=== PATIENT | male | born 1945 | race Caucasian/White ===

== ENCOUNTER 2018-06-02 12:23 | Inpatient (IN) | payer OTHER ==
[2018-05-30 10:32] LABS: BASOPHILS # (AUTO) 0.1 (0.0-0.1); BASOPHILS % 0.5 % (0.0-1.0); EOSINOPHILS # (AUTO) 0.2 (0.0-0.4); EOSINOPHILS % 1.8 % (0.0-6.0); HEMATOCRIT 44.5 % (38.2-49.6); LYMPHOCYTES # (AUTO) 2.1 (1.0-3.2); MEAN CORPUSCULAR HEMOGLOBIN 29.4 pg (28-32); MEAN CORPUSCULAR HGB CONC 33.7 g/dL (31-35); MEAN CORPUSCULAR VOLUME 87.3 fL (81-99); MONOCYTES % 8.8 % (4.4-11.3); NEUTROPHILS # (AUTO) 7.7 (2.1-6.9); NEUTROPHILS % 69.6 % (38.7-80.0); PLATELET COUNT 354 x10e3/uL (140-360); RED CELL DISTRIBUTION WIDTH 12.6 % (11.7-14.4)
[2018-05-30 10:42] LABS: INR 1.07; PROTHROMBIN TIME 13.1 seconds (11.9-14.5)
[2018-05-30 10:43] LABS: PARTIAL THROMBOPLASTIN TIME 27.8 seconds (23.8-35.5)
[2018-05-30 11:14] LABS: ALANINE AMINOTRANSFERASE 28 IU/L (0-55); ALBUMIN 3.6 g/dL (3.5-5.0); ALKALINE PHOSPHATASE 51 IU/L (40-150); ANION GAP 16.1 mmol/L (8-16); BLOOD UREA NITROGEN 14 mg/dL (7-26); BUN/CREATININE RATIO 16 (6-25); CALCIUM 9.9 mg/dL (8.4-10.2); CARBON DIOXIDE 27 mmol/L (22-29); CHLORIDE 98 mmol/L (98-107); EST GLOMERULAR FILTRATION RATE > 60 ML/MIN (60-); GLUCOSE 160 mg/dL (74-118); POTASSIUM 4.1 mmol/L (3.5-5.1); SODIUM 137 mmol/L (136-145)
--- NOTE | 2018-05-30 11:28 | Diagnostic Imaging Report ---
EXAMINATION: CHEST 2 VIEWS INDICATION: Pre Admit COMPARISON: None FINDINGS: TUBES and LINES: None. LUNGS: Low lung volumes. Mild left basilar subsegmental atelectasis. There is no evidence of pneumonia or pulmonary edema. PLEURA: No pleural effusion or pneumothorax. HEART AND MEDIASTINUM: The cardiomediastinal silhouette is unremarkable. BONES AND SOFT TISSUES: Age indeterminate anterior wedge compression deformity (loss of approximately 25 percent of height) of a lower thoracic vertebral body on lateral view. UPPER ABDOMEN: No free air under the diaphragm. IMPRESSION: No evidence of pneumonia or pulmonary edema. Age indeterminate loss of approximately 25 percent of vertebral body height in a lower thoracic vertebral body on the Signed by: Dr. Pedro Pablo Nina MD on 05/30/2018 11:24 AM
[2018-06-02] VITALS (15 sets, daily range): BP systolic 3–122; BP diastolic 47–113
[~2018-06-02] VITALS: Ht 177.8 cm; Wt 105.8 kg
[~2018-06-02 12:23] MED LIST: AMLODIPINE BESY10 MG PO; BASAGLAR SC; FLOMAX0.4 MG PO; GABAPENTIN100 MG PO; LEVOTHYROXINE50 MCG PO; LISINOPRIL-HCT1 EAC1 PO; METFORMIN HCL500 M2 PO; PRAVASTATIN SOD20 MG PO; TIZANIDINE HCL4 MG PO
[2018-06-02] MEDS ORDERED: CEFAZOLIN SOD 1 GM VIAL ONE (12:45)
[2018-06-02] MEDS ORDERED: MANNITOL 25% 12.5GM/50ML 50 ML ONE (12:59)
[2018-06-02] MEDS ORDERED: GELATIN SPONGE SZ 100 ONE (13:00)
[2018-06-02] MEDS ORDERED: IOPAMIDOL 300MG/ML 50ML INFUS..BTL IV ONE (14:51)
[2018-06-02] MEDS ORDERED: ACETAMINOPHEN 1000 MG/100 ML IV ONE (15:59)
[2018-06-02] MEDS ORDERED: DEXAMETHASONE SOD PHOS INJ 4 MG/ML VIAL ONE (15:59)
[2018-06-02] MEDS ORDERED: SEVOFLURANE INHAL SOLN 250 ML PEN BTL ONE (15:59)
[2018-06-02] MEDS ORDERED: ROCURONIUM BROMIDE 10 MG/ML 5ML VIAL ONE (15:59)
[2018-06-02] MEDS ORDERED: PROPOFOL IV EMULSION 10 MG/ML 20 ML VIAL ONE (15:59)
[2018-06-02] MEDS ORDERED: ONDANSETRON HCL INJ 2 MG/ML VIAL ONE (15:59)
[2018-06-02] MEDS: SOD CHL 0.45%/POT CHL 20MEQ 1,000 ML IV SCH ×2 (18:06→21:36)
[2018-06-02] MEDS ORDERED: ACETAMINOPHEN 1000 MG/100 ML IV PRN (18:15)
[2018-06-02] MEDS ORDERED: ONDANSETRON HCL INJ 2 MG/ML VIAL IV PRN (18:15)
[2018-06-02] MEDS ORDERED: DIPHENHYDRAMINE HCL INJ 50 MG/ML VIAL IM PRN (18:15)
[2018-06-02] MEDS ORDERED: NALOXONE HCL INJ 0.4 MG/ML AMP IV PRN (18:15)
[2018-06-02] MEDS ORDERED: FENTANYL CITRATE/PF 100MCG/2 ML INJ ONE ×2 (18:25→19:55)
[2018-06-02] MEDS ORDERED: MORPHINE SULFATE 2 MG/ML SYR ONE ×2 (18:35→19:17)
[2018-06-02] MEDS ORDERED: HYDROMORPHONE 2MG/ML 2 MG/ML ML ONE (18:39)
[2018-06-02] MEDS ORDERED: MORPHINE SULFATE 1 MG/ML 30ML PCA ONE (19:23)
[2018-06-02] MEDS ORDERED: MIDAZOLAM HCL 2 MG/2 ML VIAL ONE (19:55)
--- NOTE | 2018-06-02 19:56 | Diagnostic Imaging Report ---
EXAMINATION: CHEST SINGLE (PORTABLE) INDICATION: \S\R/O PTX \[id number] \S\1507 COMPARISON: Chest radiograph 05/30/2018 FINDINGS: AP view TUBES and LINES: None. LUNGS: Low lung volumes. Bibasilar atelectasis. There is no evidence of pneumonia or pulmonary edema. PLEURA: No pleural effusion or pneumothorax. HEART AND MEDIASTINUM: The cardiomediastinal silhouette is unremarkable. BONES AND SOFT TISSUES: No acute osseous lesion. Soft tissues are unremarkable. UPPER ABDOMEN: No free air under the diaphragm. IMPRESSION: No pneumothorax. Decreased lung volumes when compared to prior exam with worsening bibasilar atelectasis. Signed by: Dr. Whitney An M.D. on 06/02/2018 7:52 PM
[2018-06-02] MEDS: MORPHINE SULFATE 1 MG/ML 30ML PCA IV PRN ×2 (20:09→21:08)
[2018-06-02] MEDS ORDERED: CEFAZOLIN SOD 1 GM/D5W 50ML 50 ML IV SCH (22:00)
[2018-06-02] MEDS: CEFAZOLIN SOD 1 GM VIAL IV SCH (22:58)
[2018-06-03] VITALS (84 sets, daily range): BP systolic 62–128; BP diastolic 42–93
[2018-06-03] MEDS: MORPHINE SULFATE 1 MG/ML 30ML PCA IV PRN ×3 (00:04→21:39)
[2018-06-03] MEDS: SOD CHL 0.45%/POT CHL 20MEQ 1,000 ML IV SCH (02:06)
[2018-06-03 04:42] LABS: BASOPHILS % 0.2 % (0.0-1.0); HEMATOCRIT 37.5 % (38.2-49.6); HEMOGLOBIN 12.4 g/dL (14.0-18.0); LYMPHOCYTES # (AUTO) 1.5 (1.0-3.2); LYMPHOCYTES % 12.2 % (18.0-39.1); MEAN CORPUSCULAR HEMOGLOBIN 29.6 pg (28-32); MEAN CORPUSCULAR HGB CONC 33.1 g/dL (31-35); MEAN CORPUSCULAR VOLUME 89.5 fL (81-99); MONOCYTES # (AUTO) 1.5 (0.2-0.8); NEUTROPHILS # (AUTO) 9.4 (2.1-6.9); NEUTROPHILS % 75.4 % (38.7-80.0); PLATELET COUNT 322 x10e3/uL (140-360); RED BLOOD COUNT 4.19 x10e6/uL (4.3-5.7)
[2018-06-03 05:24] LABS: ANION GAP 14.7 mmol/L (8-16); BLOOD UREA NITROGEN 13 mg/dL (7-26); BUN/CREATININE RATIO 13 (6-25); CALCIUM 8.8 mg/dL (8.4-10.2); CARBON DIOXIDE 27 mmol/L (22-29); CHLORIDE 102 mmol/L (98-107); CREATININE, SERUM 1.03 mg/dL (0.72-1.25); EST GLOMERULAR FILTRATION RATE > 60 ML/MIN (60-); GLUCOSE 173 mg/dL (74-118); POTASSIUM 4.7 mmol/L (3.5-5.1); SODIUM 139 mmol/L (136-145)
[2018-06-03] MEDS: CEFAZOLIN SOD 1 GM VIAL IV SCH ×3 (06:03→22:22)
[2018-06-03] MEDS: DOCUSATE SODIUM 100 MG CAP PO SCH ×2 (09:09→17:19)
[2018-06-03] MEDS ORDERED: SODIUM CHLORIDE 0.45% 1,000 ML ONE ×2 (09:19→18:19)
[2018-06-03] MEDS ORDERED: DEXTROSE 50% SYRINGE 50 ML IV PRN (09:30)
[2018-06-03] MEDS: INSULIN LISPRO 100 UNIT/1 ML 3ML VIAL SQ SCH ×3 (11:30→20:46)
[2018-06-03] MEDS: SODIUM CHLORIDE 0.45% 1,000 ML IV SCH (19:16)
[2018-06-04] VITALS (26 sets, daily range): BP systolic 97–174; BP diastolic 32–109
[2018-06-04] MEDS: SODIUM CHLORIDE 0.45% 1,000 ML IV SCH (02:23)
[2018-06-04 04:39] LABS: BASOPHILS % 0.2 % (0.0-1.0); EOSINOPHILS # (AUTO) 0.1 (0.0-0.4); EOSINOPHILS % 0.6 % (0.0-6.0); HEMATOCRIT 38.6 % (38.2-49.6); HEMOGLOBIN 12.5 g/dL (14.0-18.0); LYMPHOCYTES # (AUTO) 1.9 (1.0-3.2); LYMPHOCYTES % 15.4 % (18.0-39.1); MEAN CORPUSCULAR HEMOGLOBIN 29.3 pg (28-32); MEAN CORPUSCULAR HGB CONC 32.4 g/dL (31-35); MEAN CORPUSCULAR VOLUME 90.4 fL (81-99); MONOCYTES # (AUTO) 1.6 (0.2-0.8); NEUTROPHILS # (AUTO) 8.9 (2.1-6.9); NEUTROPHILS % 70.5 % (38.7-80.0); PLATELET COUNT 297 x10e3/uL (140-360); RED BLOOD COUNT 4.27 x10e6/uL (4.3-5.7)
[2018-06-04 05:01] LABS: ANION GAP 17.2 mmol/L (8-16); CALCIUM 8.7 mg/dL (8.4-10.2); CREATININE, SERUM 1.2 mg/dL (0.72-1.25); POTASSIUM 4.2 mmol/L (3.5-5.1)
[2018-06-04] MEDS: CEFAZOLIN SOD 1 GM VIAL IV SCH ×3 (06:18→22:00)
[2018-06-04 07:08] LABS: EOSINOPHILS % (MANUAL) 2 % (0-7); LYMPHOCYTES % (MANUAL) 15 % (19-48); MONOCYTES % (MANUAL) 20 % (3.4-9.0); NEUTROPHILS % (MANUAL) 60 % (40-74)
[2018-06-04 07:13] LABS: ANISOCYTOSIS SLIGHT; HYPOCHROMASIA SLIGHT; PLATELET ESTIMATE ADEQUATE; PLATELET MORPHOLOGY COMMENT NORMAL; RBC MORPHOLOGY COMMENT NORMAL
[2018-06-04] MEDS: INSULIN LISPRO 100 UNIT/1 ML 3ML VIAL SQ SCH ×4 (08:04→21:00)
[2018-06-04] MEDS ORDERED: ACETAMINOPHEN/CODEINE 300MG - 30MG TAB PO PRN (09:00)
[2018-06-04] MEDS: DOCUSATE SODIUM 100 MG CAP PO SCH ×2 (09:05→16:50)
[2018-06-04] MEDS: LORATADINE 10 MG TAB PO SCH (09:55)
[2018-06-04] MEDS: HYDROCODONE/APAP 7.5MG-325MG 1 EA TAB PO PRN ×2 (09:55→22:45)
[2018-06-05] VITALS (7 sets, daily range): BP systolic 124–144; BP diastolic 59–71
[2018-06-05 05:42] LABS: BASOPHILS % 0.3 % (0.0-1.0); EOSINOPHILS # (AUTO) 0.2 (0.0-0.4); EOSINOPHILS % 1.6 % (0.0-6.0); HEMATOCRIT 36.5 % (38.2-49.6); LYMPHOCYTES # (AUTO) 1.8 (1.0-3.2); MEAN CORPUSCULAR HEMOGLOBIN 29.8 pg (28-32); MEAN CORPUSCULAR HGB CONC 32.9 g/dL (31-35); MEAN CORPUSCULAR VOLUME 90.6 fL (81-99); MONOCYTES # (AUTO) 1.5 (0.2-0.8); MONOCYTES % 12.6 % (4.4-11.3); NEUTROPHILS # (AUTO) 8.2 (2.1-6.9); NEUTROPHILS % 70.2 % (38.7-80.0); PLATELET COUNT 282 x10e3/uL (140-360); RED BLOOD COUNT 4.03 x10e6/uL (4.3-5.7); RED CELL DISTRIBUTION WIDTH 12.7 % (11.7-14.4)
[2018-06-05 06:01] LABS: ANION GAP 12.7 mmol/L (8-16); BLOOD UREA NITROGEN 12 mg/dL (7-26); BUN/CREATININE RATIO 14 (6-25); CALCIUM 9.1 mg/dL (8.4-10.2); CARBON DIOXIDE 30 mmol/L (22-29); CHLORIDE 101 mmol/L (98-107); CREATININE, SERUM 0.85 mg/dL (0.72-1.25); EST GLOMERULAR FILTRATION RATE > 60 ML/MIN (60-); GLUCOSE 127 mg/dL (74-118); POTASSIUM 4.7 mmol/L (3.5-5.1); SODIUM 139 mmol/L (136-145)
[2018-06-05] MEDS: CEFAZOLIN SOD 1 GM VIAL IV SCH ×3 (06:15→22:45)
[2018-06-05] MEDS ORDERED: BISACODYL 10 MG SUPP PR ONE (07:30)
[2018-06-05] MEDS: INSULIN LISPRO 100 UNIT/1 ML 3ML VIAL SQ SCH ×4 (07:30→21:10)
[2018-06-05] MEDS: LORATADINE 10 MG TAB PO SCH (08:11)
[2018-06-05] MEDS: DOCUSATE SODIUM 100 MG CAP PO SCH ×2 (08:11→16:36)
[2018-06-05] MEDS: HYDROCODONE/APAP 7.5MG-325MG 1 EA TAB PO PRN ×3 (08:30→21:09)
[2018-06-06] VITALS: BP 114/54
[2018-06-06 04:39] VITALS: BP 174/77
[2018-06-06 05:40] LABS: BASOPHILS % 0.4 % (0.0-1.0); EOSINOPHILS # (AUTO) 0.2 (0.0-0.4); HEMATOCRIT 35.3 % (38.2-49.6); HEMOGLOBIN 11.7 g/dL (14.0-18.0); LYMPHOCYTES # (AUTO) 1.4 (1.0-3.2); LYMPHOCYTES % 13.2 % (18.0-39.1); MEAN CORPUSCULAR HEMOGLOBIN 29.4 pg (28-32); MEAN CORPUSCULAR HGB CONC 33.1 g/dL (31-35); MEAN CORPUSCULAR VOLUME 88.7 fL (81-99); MONOCYTES # (AUTO) 1.2 (0.2-0.8); MONOCYTES % 11.5 % (4.4-11.3); NEUTROPHILS # (AUTO) 7.7 (2.1-6.9); NEUTROPHILS % 72.4 % (38.7-80.0); PLATELET COUNT 321 x10e3/uL (140-360); RED BLOOD COUNT 3.98 x10e6/uL (4.3-5.7); RED CELL DISTRIBUTION WIDTH 12.7 % (11.7-14.4)
[2018-06-06] MEDS: CEFAZOLIN SOD 1 GM VIAL IV SCH ×2 (05:46→13:20)
[2018-06-06] MEDS: HYDROCODONE/APAP 7.5MG-325MG 1 EA TAB PO PRN ×2 (05:53→13:32)
[2018-06-06 06:10] LABS: ANION GAP 13.9 mmol/L (8-16); BLOOD UREA NITROGEN 11 mg/dL (7-26); BUN/CREATININE RATIO 14 (6-25); CARBON DIOXIDE 28 mmol/L (22-29); CHLORIDE 99 mmol/L (98-107); CREATININE, SERUM 0.79 mg/dL (0.72-1.25); EST GLOMERULAR FILTRATION RATE > 60 ML/MIN (60-); GLUCOSE 141 mg/dL (74-118); POTASSIUM 3.9 mmol/L (3.5-5.1); SODIUM 137 mmol/L (136-145)
[2018-06-06] MEDS: INSULIN LISPRO 100 UNIT/1 ML 3ML VIAL SQ SCH ×3 (07:30→16:30)
[2018-06-06 08:10] VITALS: BP 155/82
[2018-06-06] MEDS ORDERED: BISACODYL 10 MG SUPP PR ONE (08:30)
[2018-06-06] MEDS ORDERED: BISACODYL 10 MG SUPP PR PRN (08:30)
[2018-06-06] MEDS ORDERED: MAGNESIUM HYDROXIDE 30 ML UDC PO ONE (09:15)
[2018-06-06] MEDS ORDERED: MINERAL OIL 132 ML BTL PR ONE (09:15)
[2018-06-06] MEDS: DOCUSATE SODIUM 100 MG CAP PO SCH ×2 (09:18→17:02)
[2018-06-06] MEDS: LORATADINE 10 MG TAB PO SCH (09:18)
[2018-06-06 12:00] VITALS: BP 139/80
[2018-06-06 12:36] VITALS: BP 155/82
[2018-06-06] MEDS ORDERED: TYLENOL WITH C1 EACH PO (15:33)
[2018-06-06] MEDS ORDERED: COLACE100 MG PO (15:34)
--- NOTE | 2018-06-24 09:55 | History and Physical ---
PRIMARY CARE PHYSICIAN: Dr. Cherry Marroquin BRAKES INSPECTOR: Dr. Malik John The patient is admitted to ICU after left partial renal resection. HISTORY: This 72-year-old male is now status post surgical intervention, left partial renal nephrectomy. The patient is stable postop. He is comfortable. He is getting IV fluids. The patient has not had any flatus as yet, but he is comfortable overall. PAST MEDICAL HISTORY 1. Left renal mass. 2. Recurrent urinary tract infection. 3. Hematuria. 4. Chronic lower back pain. 5. Diabetes. 6. Hypertension. 7. Hypothyroidism. 8. History of colon cancer, status post excision of cancerous polyps. SOCIAL HISTORY: Patient does not smoke or use alcohol. No recreational drugs. ALLERGIES: MEPERIDINE. HOME MEDICATIONS: List will be available for review. REVIEW OF SYSTEMS: Patient is stable postop. PHYSICAL EXAMINATION GENERAL: The patient is not in acute distress. VITAL SIGNS: Temperature is 98. Blood pressure 116/46. Pulse rate 75. Respirations 18. HEENT: Normocephalic, atraumatic. Pupils are reactive. Anicteric. NECK: Supple grossly. PULMONARY: Clear. CARDIOVASCULAR: Regular rhythm. ABDOMEN: Status post left partial nephrectomy. A DAWIT drain is in place. NEUROLOGIC: No focal deficit. LABORATORY: Sodium 139, potassium 4.7, chloride 102, bicarb 27, BUN 13, creatinine 1.0, glucose 173. WBC is 12. Hemoglobin 12. Hematocrit 37. Platelets 322. IMPRESSION 1. Status post postoperative day #1 left partial nephrectomy. 2. Baseline chronic medical problems, diabetes and hypertension. PLAN: Continue with postoperative care. Pain control. Check blood sugar. Cover with insulin. Job#: [id number]
--- NOTE | 2018-06-28 04:48 | Discharge Summary ---
FINAL DIAGNOSES 1. Left renal mass, status post left partial nephrectomy with left renal cystectomy done by Dr. Malik John. 2. Postoperative pain. 3. Slight anemia, but stable. SUMMARY: Patient is a 72-year-old male patient of Dr. Cherry Marroquin. Patient came in for postoperatively care. He has a left renal mass, underwent left partial nephrectomy and left renal cystectomy. Patient was stable postoperatively. He was comfortable with WELDING ESTIMATOR pump. Subsequently, medication adjustment was made. Patient was transferred out of the ICU to the medical floor and continuing with physical therapy. He is slightly anemic, but not enough to manage. His hemoglobin and hematocrit was 11.7 and 35.3 on day of discharge. BUN and creatinine are 11 and 0.79 respectively. The renal function is stable. Patient was comfortable, and he is able to tolerate all his diet. The patient was stable, discharged home after clearing with Dr. Malik John, and the patient to follow up with Dr. Malik John for postoperative care. Job#: [id number] [place]
--- OUTSIDE RECORDS SUMMARY | 2018-07-10 04:31 | XMS REPORT | Summary of Care ---
Author Author [facility] Organization [facility] Address Unknown Phone Unavailable Encounter MICHELLE Ahmadi(DIANE) [id number] Date(s): 08/31/16 - 08/31/16 [facility] [address] [place] [address]- Discharge Disposition: Home or Self Care Attending Physician: Raza Cyr MD Referring Physician: Raza Cyr MD Vital Signs No data available for this section Problem List No data available for this section Allergies, Adverse Reactions, Alerts No data available for this section Medications No data available for this section Results CHEM PANEL Most recent to 1 oldest [Reference Range]: eGFR 85 mL/min/1.73m2 1 *NA* (08/31/16 9:07 AM) POC Creatinine 0.9 mg/dL [0.5-1.4 mg/dL] (08/31/16 9:07 AM) 1Result Comment: The eGFR is calculated using the CKD-EPI formula. In most young , healthy individuals the eGFR will be >90 mL/min/1.73m2. The eGFR declines with age. An eGFR of 60-89 may be normal in some populations, particularly the elderly, for whom the CKD-EPI formula has not been extensively validated. Use of the eGFR is not recommended in the following populations: Individuals with unstable creatinine concentrations, including patients and those with serious co-morbid conditions. Patients with extremes in muscle mass or diet. The data above are obtained from the National Kidney Disease Education Program ( NKDEP) which additionally recommends that when the eGFR is used in patients with extremes of body mass index for purposes of drug dosing, the eGFR should be multiplied by the estimated BMI. Immunizations No data available for this section Procedures No data available for this section Social History No data available for this section Assessment and Plan No data available for this section
--- OUTSIDE RECORDS SUMMARY | 2018-07-10 04:31 | XMS REPORT ---
[email or web address] Address Unknown Phone Unavailable Care Team Providers Care Quality Compliance Manager Name Role Phone АЛЕКСАНДР PENA Unavailable Unavailable Problems This patient has no known problems. Allergies, Adverse Reactions, Alerts This patient has no known allergies or adverse reactions. Medications This patient has no known medications. Results Test Description Test Time Test Comments Text Results Atomic Results Result Comments CHEST SINGLE (PORTABLE) 2018-06-02 19:51:00 [place] [address] Patient Name: ARLEEN GIL MR #: [id number] : 1945 Age/Sex: 72/ M Req #: [id number] Adm Physician: Ordered by: АЛЕКСАНДР PENA MD Report #: [id number] Location: OR Room/Bed: Procedure: [id number] DX/CHEST SINGLE (PORTABLE) Exam Date: 06/02/18 Exam Time: 1507 REPORT STATUS: Signed EXAMINATION : CHEST SINGLE (PORTABLE) INDICATION: COMPARISON : Chest radiograph 05/30/2018 FINDINGS: AP view TUBES and LINES: None. LUNGS: Low lung volumes. Bibasilar atelectasis. There is no evidence of pneumonia or pulmonary edema. PLEURA: No pleural effusion or pneumothorax. HEART AND MEDIASTINUM: The cardiomediastinal silhouette is unremarkable. BONES AND SOFT TISSUES: No acute osseous lesion. Soft tissues are unremarkable. UPPER ABDOMEN: No free air under the diaphragm. IMPRESSION: No pneumothorax. Decreased lung volumes when compared to prior exam with worsening bibasilar atelectasis. Signed by: Dr. Kirk Pearson M.D. on 06/02/2018 7:52 PM Dictated By: KIRK PEARSON MD 51 Transcribed By: FROILAN on 06/02/181951 COPY TO: АЛЕКСАНДР PENA MD CHEST 2 VIEWS 2018-05-30 11:20:00 [place] [address] Patient Name: ARLEEN GIL MR #: [id number] : 1945 Age/Sex: 72/M Req #: [id number] Adm Physician: Ordered by: АЛЕКСАНДР PENA MD Report #: [id number] Location: OR Room/Bed: Procedure: [id number] DX/CHEST 2 VIEWS Exam Date: 05/30/18 Exam Time: 1115 REPORT STATUS: Signed EXAMINATION: CHEST 2 VIEWS INDICATION: Pre Admit COMPARISON: None FINDINGS: TUBES and LINES: None. LUNGS: Low lung volumes. Mild left basilar subsegmental atelectasis. There is no evidence of pneumonia or pulmonary edema. PLEURA: No pleural effusion or pneumothorax. HEART AND MEDIASTINUM: The cardiomediastinal silhouette is unremarkable. BONES AND SOFT TISSUES: Age indeterminate anterior wedge compression deformity (loss of approximately 25 percent of height) of a lower thoracic vertebral body on lateral view. UPPER ABDOMEN: No free air under the diaphragm. IMPRESSION: No evidence of pneumonia or pulmonary edema. Age indeterminate loss of approximately 25 percent of vertebral body height in a lower thoracic vertebral body on the Signed by: Dr. Mari Lara MD on 05/30 11:24 AM Dictated By: MARI LARA MD 112 Transcribed By: FROILAN on 05/30/181123 COPY TO: АЛЕКСАНДР PENA MD
--- NOTE | 2018-08-17 23:33 | Operative Report ---
DATE OF PROCEDURE: June 02, 2018 PREOPERATIVE DIAGNOSES 1. Left renal mass, consistent with kidney cancer. 2. Left renal cyst. 3. Microhematuria. 4. History of urolithiasis. POSTOPERATIVE DIAGNOSES 1. Left renal mass, consistent with kidney cancer. 2. Left renal cyst. 3. Microhematuria. 4. History of urolithiasis. OPERATIONS PERFORMED 1. Cystourethroscopy with bilateral ureteral catheterization and retrograde ureteropyelography (separate procedure for the microhematuria and the urolithiasis history). 2. Interpretation of retrograde ureteropyelography. 3. Supervision of fluoroscopy. No radiologist present. 4. Left complicated partial nephrectomy (separate procedure performed and made more complicated by the patient's obesity and other anatomical concerns). 5. Left renal cyst unroofing. CIRCULATION TENDER: Dr. Sarai John COMPLICATIONS: None. CLINICAL SUMMARY: Frantz Logan is a 72-year-old man with the above preoperative diagnoses. He was brought for the above procedures. He is aware of the risks of bleeding, infection, injury to adjacent structures, need for additional procedures, and elected to proceed. OPERATIVE PROCEDURE IN DETAIL: Informed was verified. Frantz Logan was properly identified, taken to operating room, placed on the cystoscopy table in supine position. Anesthesia was uneventfully begun. The patient was then carefully and gently repositioned in dorsal lithotomy position with all pressure points well padded. His genitalia were prepared and draped in usual sterile fashion. The 22.5-Maldivian cystoscope sheath with visual obturator in place was atraumatically inserted to patient's urethra. It was guided down the unremarkable urethra past a normal sphincteric region through the prostate bed was significant for some visually obstructing, BPH with elevated median bar. We entered the patient's bladder, which exhibited grade-2 trabeculations, but no tumors, no stones, and no diverticula. Normally positioned configured ureteral orifices were identified. Ureteral catheter was used cannulate each ureter and retrograde ureteropyelography was performed. Interpretation retrograde ureteropyelography: Contrast was instilled in retrograde fashion bilaterally. There were no tumors, no stones, no diverticula. Unobstructed drainage was observed bilaterally fluoroscopically. The patient was then transferred carefully and gently to the open operating room, where he was re-positioned on the operating table in the flank position with all pressure points carefully well padded. His back chest and abdomen were prepared and draped in usual sterile fashion. A flank incision was then made carried through all layers of the abdominal and chest wall. We isolated the retroperitoneum. We carefully isolated the kidney. This was made complicated by the patient's anatomical concerns. We eventually isolated the kidney. We obtained control of the renal artery. Once the Gerota's fascia was removed sufficiently, we identified a cyst. We proceeded with unroofing the cyst. The cyst wall sent for histopathological analysis and we fulgurated the remaining cyst wall that was intrarenal. We then identified the renal mass that was suspicious. We clamped the artery with a Abhilash tourniquet and we proceeded quickly to perform a partial nephrectomy. Once we excised with what we believed to be was adequate margins. We quickly oversewed the various blood vessels as well as collecting system. We are planning excision. The pathologist returned a report of negative margins. We then finished our repair with Surgicel, as well as FloSeal with the capsular sutures approximating. Excellent hemostasis was achieved. Clamp time of the artery was approximately 12 minutes. A Earl drain was then placed through a separate stab incision, secured to the skin with nylon suture. After copiously irrigating, the patient's incision was approximated with a heavy Vicryl suture in 2 layers and the skin was approximated with skin mk. Heavy Vicryl suture was utilized in an interrupted figure-of-8 fashion. Sterile dressings were applied and the patient was uneventfully reversed from anesthesia and taken to recovery room in stable condition. There were no complications to procedure. The patient tolerated the procedure well. Sponge, needle, and instrument counts were correct x2 at the end of the case. For estimated blood loss, please refer to the anesthesia record. Plans will be to proceed with routine postoperative care and of course lifelong followup. Job#: [id number] CQ
== END 2018-06-06 17:01 | disposition home health service (06) | DRG 657 ==
LOC: OR 12:23 → ICU 20:03 → MED/SURG 06-04 11:23
PROVIDERS: ADMIT Internal Medicine; ATTEND Internal Medicine
PROC: 0TB10ZZ Excision of Left Kidney, Open Approach (ICD-10-PCS; principal; 2018-06-02 15:02)
PROC: BT1F1ZZ Fluoroscopy of Left Kidney, Ureter and Bladder using Low Osmolar Contrast (ICD-10-PCS; 2018-06-02 15:02)
DX: C64.2 Malignant neoplasm of left kidney, except renal pelvis (principal); K56.7 Ileus, unspecified; N28.89 Other specified disorders of kidney and ureter; N40.1 Benign prostatic hyperplasia with lower urinary tract symptoms; N39.41 Urge incontinence; R39.14 Feeling of incomplete bladder emptying; R35.1 Nocturia; R31.29 Other microscopic hematuria; E66.9 Obesity, unspecified; K42.9 Umbilical hernia without obstruction or gangrene; I10 Essential (primary) hypertension; E11.9 Type 2 diabetes mellitus without complications; Z87.442 Personal history of urinary calculi; Z68.33 Body mass index [BMI] 33.0-33.9, adult; Z79.84 Long term (current) use of oral hypoglycemic drugs
CPT/HCPCS: 36415; 71045; 71046; 74420; 80048; 80053; 82948; 83735; 85025; 85610; 85730; 86850; 86900; 86920; 88304; 88305; 88307; 88331; 93005; 96361; 96372; 97139; J0690; J1100; J1200; J2150; J2250; J2270; J2405